=== PATIENT | male | born 1940 | race African-American/Black ===

== ENCOUNTER 2022-06-03 16:46 | Emergency (ER) | payer OTHER ==
--- NOTE | 2022-06-03 17:22 | RAD REPORT ---
EXAM DESCRIPTION: RAD - Chest Single View - 06/03/2022 5:15 pm CLINICAL HISTORY: COUGH Chest pain. COMPARISON: Chest Single View dated 10/22/2017; Chest Single View dated 09/28/2017; Chest Pa And Lat ( 2 Views) dated 09/23/2017; Chest Single View dated 02/08/2016 FINDINGS: Portable technique limits examination quality. The lungs are grossly clear. The heart is normal in size. No displaced fractures.Aortic atheroscleros is. IMPRESSION: No acute intrathoracic process suspected.
[2022-06-03 18:07] LABS: Absolute Lymphocytes (CBC) 0.5 K/uL (0.7-4.9); Lymphocytes % 4.5 % (15.3-44.8); MCV 92.4 fL (80-100); MPV 8.6 fL (7.6-11.3); RBC Red Blood Cell Count 4.54 M/uL (4.33-5.43)
[2022-06-03 18:31] LABS: Bilirubin Total 0.7 mg/dL (0.2-1.0); Potassium 3.9 mmol/L (3.5-5.1); Protein, Total 7.9 g/dL (6.4-8.2)
[2022-06-03] MEDS ORDERED: BEBTELOVIMAB 175 MG/2 ML VIAL IV ONE (19:39)
--- NOTE | 2022-06-03 20:00 | ER ---
Nurse's Notes [facility] Name: Saul Boyd Age: 81 yrs Sex: Male : 1940 Arrival Date: 06/03/2022 Time: 16:48 Bed 14 Private MD: Carlos Miller H Diagnosis: Coronavirus infection, unspecified Presentation: 06/03 16:51 Chief complaint: Patient states: he has been having cough and fever since this morning. ap3 Coronavirus screen: Client presents with at least one sign or symptom that may indicate coronavirus-19. Ebola Screen: No symptoms or risks identified at this time. Initial Sepsis Screen:. Initial Sepsis Screen: Does the patient meet any 2 criteria? HR > 90 bpm. Does the patient have a suspected source of infection? No. Patient's initial sepsis screen is negative. Risk Assessment: Do you want to hurt yourself or someone else? Patient reports no desire to harm self or others. Onset of symptoms was June 03, 2022. 16:51 Method Of Arrival: Ambulatory ap3 16:51 Acuity: ODELL 3 ap3 Triage Assessment: 16:56 General: Appears in no apparent distress. Behavior is calm, cooperative. General: ap3 Reports fever for feeling ill for. Pain: Denies pain. Neuro: Level of Consciousness is awake, alert, obeys commands, Oriented to person, place, time, situation. Cardiovascular: Patient's skin is warm and dry. Respiratory: Reports cough that is Airway is patent Respiratory effort is even, unlabored, Onset: The symptoms/episode began/occurred this morning, the patient has mild shortness of breath. Historical: - Allergies: 16:53 NKA; ap3 - Home Meds: 16:53 propylthiouracil 50 mg Oral tab [Active]; Ventolin Rotahaler/Rotacaps Inhl [Active]; ap3 lisinopril 20 mg Oral tab [Active]; Caltrate 600 plus D oral [Active]; Vitamin D3 oral [Active]; Zytiga 250 mg oral tab [Active]; prednisone 5 mg Oral tab [Active]; ondansetron HCl 4 mg Oral tab as needed [Active]; - PMHx: 16:53 Asthma; COPD; Hypertension; ap3 - Social history:: Smoking status: Patient/guardian denies using tobacco. Screenin:56 Abuse screen: Denies threats or abuse. Nutritional screening: No deficits noted. ap3 Tuberculosis screening: No symptoms or risk factors identified. Assessment: 19:46 Reassessment: Patient is alert, oriented x 3, equal unlabored respirations, skin ja4 warm/dry/pink. Vital Signs: 16:51 BP 166 / 85; Pulse 124; Resp 19; Temp 99.5(O); Pulse Ox 94% ; Weight 56.25 kg; Height 5 ap3 ft. 5 in. (165.10 cm); 19:45 BP 138 / 93; Pulse 115; Resp 16; Pulse Ox 97% on R/A; ja4 16:51 Body Mass Index 20.63 (56.25 kg, 165.10 cm) ap3 ED Course: 16:48 Patient arrived in ED. rg4 16:48 Carlos Miller DO is Private Physician. rg4 16:49 Luanne Franklin FNP-C is [facility]. kb 16:49 Ken Francois MD is Attending Physician. kb 16:53 Triage completed. ap3 16:56 Arm band placed on right wrist. ap3 17:17 Chest Single View XRAY In Process Unspecified. EDMS 17:22 Celi Simon, KATEY is Primary Nurse. [facility] 20:31 IV discontinued, intact, bleeding controlled, No redness/swelling at site. ja4 Administered Medications: 19:40 Drug: Bebtelovimab 175 mg Route: IV; Rate: calculated rate; Site: right antecubital; ja4 19:57 Drug: Tylenol 650 mg Route: PO; ja4 19:57 Drug: NS 0.9% 500 ml Route: IV; Rate: bolus; Site: right antecubital; ja4 Outcome: 19:59 Discharge ordered by . kb 20:30 Discharged to home ambulatory. ja4 20:30 Condition: stable 20:30 Discharge instructions given to patient, family, Instructed on discharge instructions, follow up and referral plans. medication usage, Demonstrated understanding of instructions, follow-up care, medications. 20:31 Patient left the ED. ja4 Signatures: Dispatcher [employer] EDMS Luanne Franklin FNP-C FNP-Ckb Garcia, Rubi rg4 Karla Marquis RN RN ap3 Celi Simon, RN RN jh5 Leandro Mendez, RN RN ja4
--- NOTE | 2022-06-03 20:00 | EDPHYS ---
Physician Documentation [facility] Name: Saul Boyd Age: 81 yrs Sex: Male : 1940 Arrival Date: 06/03/2022 Time: 16:48 Bed 14 Private MD: Carlos Miller H ED Physician Ken Francois HPI: 06/03 17:07 This 81 yrs old Black Male presents to ER via Ambulatory with complaints of Cough, kb Breathing Difficulty. 17:07 The patient or guardian reports cough, that is intermittent, described as mild, flu kb symptoms, low-grade fever. The patient or guardian reports difficulty breathing. Onset: The symptoms/episode began/occurred today. Severity of symptoms: At their worst the symptoms were moderate, in the emergency department the symptoms are unchanged. Modifying factors: The symptoms are alleviated by nothing, the symptoms are aggravated by nothing. Associated signs and symptoms: Pertinent positives: fever, Pertinent negatives: chest pain, diarrhea, ear ache, nausea, rhinorrhea, sore throat, vomiting. The patient has not experienced similar symptoms in the past. The patient has not recently seen a physician. Historical: - Allergies: 16:53 NKA; ap3 - Home Meds: 16:53 propylthiouracil 50 mg Oral tab [Active]; Ventolin Rotahaler/Rotacaps Inhl [Active]; ap3 lisinopril 20 mg Oral tab [Active]; Caltrate 600 plus D oral [Active]; Vitamin D3 oral [Active]; Zytiga 250 mg oral tab [Active]; prednisone 5 mg Oral tab [Active]; ondansetron HCl 4 mg Oral tab as needed [Active]; - PMHx: 16:53 Asthma; COPD; Hypertension; ap3 - Social history:: Smoking status: Patient/guardian denies using tobacco. ROS: 17:07 ENT: Negative for injury, pain, and discharge. kb 17:07 Constitutional: Positive for fever, Negative for body aches, chills, fatigue, malaise, poor PO intake, weight loss. 17:07 Respiratory: Positive for cough, shortness of breath. 17:07 All other systems are negative. Exam: 17:07 Constitutional: This is a well developed, well nourished patient who is awake, alert, kb and in no acute distress. Head/Face: Normocephalic, atraumatic. ENT: Moist Mucous membranes Chest/axilla: Normal chest wall appearance and motion. Cardiovascular: Regular rate and rhythm with a normal S1 and S2. No gallops, murmurs, or rubs. No pulse deficits. Respiratory: Respirations even and unlabored. No increased work of breathing. Talking in full sentences Skin: Warm, dry with normal turgor. Normal color. MS/ Extremity: Pulses equal, no cyanosis. Neurovascular intact. Full, normal range of motion. Neuro: Awake and alert, GCS 15, oriented to person, place, time, and situation. Moves all extremities. Normal gait. Psych: Awake, alert, with orientation to person, place and time. Behavior, mood, and affect are within normal limits. Vital Signs: 16:51 BP 166 / 85; Pulse 124; Resp 19; Temp 99.5(O); Pulse Ox 94% ; Weight 56.25 kg; Height 5 ap3 ft. 5 in. (165.10 cm); 19:45 BP 138 / 93; Pulse 115; Resp 16; Pulse Ox 97% on R/A; ja4 16:51 Body Mass Index 20.63 (56.25 kg, 165.10 cm) ap3 MDM: 16:54 Patient medically screened. kb 17:08 Data reviewed: vital signs, nurses notes. Data interpreted: Pulse oximetry: on room air kb is 94 %. Interpretation: normal. 18:51 Counseling: I had a detailed discussion with the patient and/or guardian regarding: the kb historical points, exam findings, and any diagnostic results supporting the discharge/admit diagnosis, lab results, radiology results, the need for outpatient follow up, a family practitioner, to return to the emergency department if symptoms worsen or persist or if there are any questions or concerns that arise at home. 19:58 ED course: Discussed bebtelovimab infusion with pt. Pt consents to infusion. . kb 06/03 16:54 Order name: Flu; Complete Time: 18:13 kb 06/03 16:54 Order name: COVID-19 SARS RT PCR (Document "Date of Onset" if Symptomatic); Complete kb Time: 18:42 06/03 16:55 Order name: Blood Culture Adult (2) kb 06/03 16:55 Order name: CBC with Diff; Complete Time: 18:13 kb 06/03 16:55 Order name: CMP; Complete Time: 18:42 kb 06/03 16:55 Order name: Lactate; Complete Time: 18:24 kb 06/03 16:55 Order name: Chest Single View XRAY; Complete Time: 17:24 kb 06/03 16:55 Order name: IV Saline Lock - Large Bore; Complete Time: 17:44 kb 06/03 16:55 Order name: Labs collected and sent; Complete Time: 17:44 kb 06/03 16:55 Order name: O2 Per Protocol; Complete Time: 17:22 kb 06/03 16:55 Order name: D-Dimer; Complete Time: 18:17 kb 06/03 16:55 Order name: O2 Sat Monitoring; Complete Time: 17:22 kb 06/03 19:36 Order name: Vital Signs kb Administered Medications: 19:40 Drug: Bebtelovimab 175 mg Route: IV; Rate: calculated rate; Site: right antecubital; ja4 19:57 Drug: Tylenol 650 mg Route: PO; ja4 19:57 Drug: NS 0.9% 500 ml Route: IV; Rate: bolus; Site: right antecubital; ja4 Disposition Summary: 06/03/22 19:59 Discharge Ordered Location: Home kb Condition: Stable kb Diagnosis - Coronavirus infection, unspecified kb Followup: kb - With: Emergency Department - When: As needed - Reason: Worsening of condition Followup: kb - With: Private Physician - When: 2 - 3 days - Reason: Recheck today's complaints, Continuance of care, Re-evaluation by your physician Discharge Instructions: - Discharge Summary Sheet kb - Viral Respiratory Infection, [id number] kb - COVID-19 kb Forms: - Medication Reconciliation Form kb - Thank You Letter kb - Antibiotic Education kb - Prescription Opioid Use kb Signatures: Dispatcher [employer] Luanne Varela FNP-C FNP-Ckb Prokisch, Amanda RN RN [id number] Leandro Mendez RN RN ja4
[2022-06-03] MEDS ORDERED: NA CHLORIDE 0.9% 500 ML ONE (20:03)
[2022-06-03] MEDS ORDERED: ACETAMINOPHEN 325 MG TABLET ONE (20:03)
[2022-06-03 21:26] VITALS: TEMP 99.5
[2022-06-03 21:28] VITALS: BP 138/93; O2SAT 97
== END 2022-06-03 20:31 | disposition home or self-care (01) ==
LOC: ER 16:46
DX: U07.1 COVID-19 (principal); I10 Essential (primary) hypertension; J44.9 Chronic obstructive pulmonary disease, unspecified
CPT/HCPCS: 87040 ×2; 85025; 36415; 85379; 83605; 80053; 87804 ×2; 71045; 96374; 99283; U0003; J7040

== ENCOUNTER 2023-03-31 13:12 | Emergency (ER) | payer OTHER ==
[2023-03-31] MEDS ORDERED: METHYLPREDNISOLONE 40 MG INJ ONE (13:36)
[2023-03-31] MEDS ORDERED: IPRATROPIUM BROM 0.5MG/2.5ML ONE (13:39)
[2023-03-31] MEDS ORDERED: ALBUTEROL 2.5 MG/3 ML NEB SOL ONE (13:39)
[2023-03-31 14:06] LABS: Absolute Lymphocytes (CBC) 0.9 K/uL (0.7-4.9); Hematocrit 37.7 % (39.6-49.0); MCV 93.1 fL (80-100); MPV 8.5 fL (7.6-11.3); RBC Red Blood Cell Count 4.05 M/uL (4.33-5.43)
--- NOTE | 2023-03-31 14:06 | RAD REPORT ---
EXAM DESCRIPTION: RAD - Chest Single View - 03/31/2023 1:56 pm CLINICAL HISTORY: COPD Chest pain. COMPARISON: Chest Single View dated 06/03/2022; Chest Single View dated 10/22/2017; Chest Single View d ated 09/28/2017; Chest Pa And Lat (2 Views) dated 09/23/2017 FINDINGS: Portable technique limits examination quality. The lungs are emphysematous but clear. The heart is normal in size. No displaced fractures. IMPRESSION: COPD.
[2023-03-31 14:23] LABS: Albumin 3.3 g/dL (3.4-5.0); Bilirubin Total 0.4 mg/dL (0.2-1.0); Potassium 3.6 mEq/L (3.5-5.1); Protein, Total 7.1 g/dL (6.4-8.2); Troponin High Sensitivity 44.2 pg/mL (<58.9)
[2023-03-31] MEDS ORDERED: NA CHLORIDE 0.9% 1,000 ML ONE (15:25)
--- NOTE | 2023-03-31 16:26 | EDPHYS ---
Physician Documentation [facility] Name: Saul Boyd Age: 82 yrs Sex: Male : 1940 Arrival Date: 03/31/2023 Time: 13:12 Bed 8 Private MD: Carlos Miller H ED Physician Sushil Ricks HPI: 03/31 14:23 This 82 yrs old Black Male presents to ER via Wheelchair with complaints of Breathing bs3 Difficulty. 14:23 82-year-old male history of COPD hypertension former smoker presents with cough bs3 difficulty breathing for approximately 3 to 4 days progressive over time they tried outpatient treatment with his albuterol without relief no history of PE or DVT no leg swelling no fevers or chills no chest pain nothing else is bothering him. Historical: - Allergies: 13:20 NKA; ll1 - Home Meds: 13:25 Vitamin D Oral 2000 unit daily [Active]; Caltrate 600 plus D 600 mg-20 mcg (800 unit) iw oral tablet,chewable daily [Active]; lisinopril 20 mg Oral tablet daily [Active]; Ventolin Rotahaler/Rotacaps Inhl four times a day [Active]; propylthiouracil 50 mg Oral tablet 3 times per day [Active]; albuterol sulfate 2.5 mg /3 mL (0.083 %) Inhl Solution for Nebulization 4 times per day [Active]; Zytiga 250 mg oral tablet three times a day [Active]; prednisone 1 mg Oral tablet, delayed release (enteric coated) 2 times per day [Active]; ondansetron HCl 4 mg Oral tablet daily [Active]; - PMHx: 13:20 Asthma; COPD; Hypertension; ll1 - Immunization history:: Client reports receiving the 2nd dose of the Covid vaccine. - Social history:: Smoking status: Patient/guardian denies using tobacco. ROS: 14:23 Constitutional: Negative for fever, chills bs3 14:23 All other systems are negative. Exam: 14:23 Constitutional: This is a well developed, well nourished patient who is awake, alert, bs3 and in no acute distress. Head/Face: Normocephalic, atraumatic. Eyes: Pupils equal round and reactive to light, extra-ocular motions intact. Lids and lashes normal. ENT: mmm, no posterior phyarngeal erythema Neck: Trachea midline, no thyromegaly, no neck stiffness Chest/axilla: Normal chest wall appearance and motion. Nontender with no deformity. No lesions are appreciated. Cardiovascular: Tachycardic no murmur Respiratory: Tachypneic, clear lung Abdomen/GI: Soft, non-tender, no rebound or guarding MS/ Extremity: Pulses equal, no cyanosis. Neurovascular intact. Full, normal range of motion. Neuro: Awake and alert, GCS 15, oriented to person, place, time, and situation. Cranial nerves II-XII grossly intact. Motor strength 5/5 in all extremities. Sensory grossly intact. Psych: Awake, alert, with orientation to person, place and time. Behavior, mood, and affect are within normal limits. 14:23 Sinus tachycardia 112, right bundle branch block QTc 464 as interpreted by myself bs3 Vital Signs: 13:21 BP 155 / 78; Pulse 105; Resp 22; Temp 98.7; Weight 57.15 kg; Height 5 ft. 5 in. ; Pain ll1 0/10; 13:47 BP 142 / 76; Pulse 114; Resp 26; Temp 98; Pulse Ox 100% on 6 lpm Nebulizer Mask; Pain sc3 0/10; 16:27 BP 155 / 67; Pulse 106; Resp 20; Temp 97.7; Pulse Ox 98% on R/A; Pain 0/10; sc3 13:21 Body Mass Index 20.97 (57.15 kg, 165.1 cm) ll1 13:21 Pain Scale: Adult ll1 13:47 Pain Scale: Adult sc3 16:27 Pain Scale: Adult sc3 MDM: 13:15 Patient medically screened. bs3 14:23 Data reviewed: vital signs, nurses notes. ED course: Patient with possible viral bs3 illness versus COPD exacerbation versus pneumonia versus PE he is low risk for PE will send D-dimer we will reassess we will give DuoNeb will give steroids. ED course: D-dimer is within the range for age-adjusted D-dimer we will not pursue further work-up for this patient reassessed feeling much better no hypoxia tachypnea is improved advised outpatient follow-up with Dr. Bui for likely acute COPD exacerbation will start on steroid and azithromycin. 16:24 ED course: Patient feeling much better on reassessment requesting to go home will treat bs3 for COPD exacerbation his heart rate is improving when I reassessed him it was 107 he feels comfortable going home return precautions given. 03/31 13:23 Order name: CBC with Diff; Complete Time: 14:16 bs3 03/31 13:23 Order name: Comprehensive Metabolic Panel; Complete Time: 14:26 bs3 03/31 13:23 Order name: D-Dimer; Complete Time: 14:16 bs3 03/31 13:23 Order name: Troponin High Sensitivity; Complete Time: 14:26 bs3 03/31 13:23 Order name: XRAY Chest (1 view); Complete Time: 14:16 bs3 03/31 13:23 Order name: EKG - Nurse/Tech; Complete Time: 13:36 bs3 Administered Medications: 13:45 Drug: DuoNeb Nebulize (3:1) (2.5 mg - 0.5 mg) 9 ml Route: Nebulizer; sc3 14:05 Follow up: Response: No adverse reaction iw 13:46 Drug: MethylPrednisoLONE IVP 40 mg Route: IVP; Site: right antecubital; sc3 14:05 Follow up: Response: No adverse reaction iw 15:22 Drug: NS 0.9% IV 1000 ml Route: IV; Rate: 1 bolus; Site: right antecubital; sc3 16:20 Follow up: IV Status: Completed infusion iw Disposition Summary: 03/31/23 16:25 Discharge Ordered Location: Home bs3 Problem: new bs3 Symptoms: have improved bs3 Condition: Stable bs3 Diagnosis - COPD/ Chronic obstructive pulmonary disease with (acute) exacerbation bs3 Followup: bs3 - With: Carlos Miller DO - When: 1 week - Reason: Re-evaluation by your physician Discharge Instructions: - Discharge Summary Sheet bs3 - Chronic Obstructive Pulmonary Disease bs3 Forms: - Medication Reconciliation Form bs3 - Thank You Letter bs3 - Antibiotic Education bs3 - Prescription Opioid Use bs3 Prescriptions: - Zithromax Z-[place] 250 mg Oral Tablet - take 1 tablet by ORAL route as directed for 5 days Day 1 - take two (2) tablets bs3 one time. Day 2, 3, 4 , 5 take one (1) tablet once daily.; 6 tablet; Refills: 0, Product Selection Permitted - Prednisone 20 mg Oral Tablet - take 2 tablets by ORAL route once daily for 5 days; 10 tablet; Refills: 0, bs3 Product Selection Permitted Signatures: Dispatcher [employer] Angeles Francois, RN RN iw Krista Cuellar RN RN ll1 Sushil Ricks MD MD bs3 Yinka Olea RN RN sc3
--- NOTE | 2023-03-31 16:26 | ER ---
Nurse's Notes [facility] Name: Saul Boyd Age: 82 yrs Sex: Male : 1940 Arrival Date: 03/31/2023 Time: 13:12 Bed 8 Private MD: Carlos Miller H Diagnosis: COPD/ Chronic obstructive pulmonary disease with (acute) exacerbation Presentation: 03/31 13:21 Chief complaint: Patient states: Cough, SOB, weak for 2-3 days. Coronavirus screen: [facility] Vaccine status: Patient reports receiving the 2nd dose of the covid vaccine. Client denies travel out of the [place] in the last 14 days. cough unrelated to allergies, difficulty breathing, fatigue, shortness of breath, Client presents with at least one sign or symptom that may indicate coronavirus-19. Standard/surgical mask placed on the client. Ebola Screen: Patient denies travel to an Ebola-affected area in the 21 days before illness onset. Initial Sepsis Screen: Does the patient meet any 2 criteria? HR > 90 bpm. No. Patient's initial sepsis screen is negative. Does the patient have a suspected source of infection? Yes: Productive cough/pneumonia. Risk Assessment: Do you want to hurt yourself or someone else? Patient reports no desire to harm self or others. Onset of symptoms was March 29, 2023. 13:21 Method Of Arrival: Wheelchair ll1 13:21 Acuity: ODELL 3 ll1 Triage Assessment: 13:22 General: Appears uncomfortable, ill, Behavior is calm, cooperative, appropriate for [facility] age. Pain: Denies pain. Respiratory: Reports shortness of breath cough that is labored breathing Onset: The symptoms/episode began/occurred 2-3 days, the patient has moderate shortness of breath. Historical: - Allergies: 13:20 NKA; ll1 - Home Meds: 13:25 Vitamin D Oral 2000 unit daily [Active]; Caltrate 600 plus D 600 mg-20 mcg (800 unit) iw oral tablet,chewable daily [Active]; lisinopril 20 mg Oral tablet daily [Active]; Ventolin Rotahaler/Rotacaps Inhl four times a day [Active]; propylthiouracil 50 mg Oral tablet 3 times per day [Active]; albuterol sulfate 2.5 mg /3 mL (0.083 %) Inhl Solution for Nebulization 4 times per day [Active]; Zytiga 250 mg oral tablet three times a day [Active]; prednisone 1 mg Oral tablet, delayed release (enteric coated) 2 times per day [Active]; ondansetron HCl 4 mg Oral tablet daily [Active]; - PMHx: 13:20 Asthma; COPD; Hypertension; ll1 - Immunization history:: Client reports receiving the 2nd dose of the Covid vaccine. - Social history:: Smoking status: Patient/guardian denies using tobacco. Screenin:48 [facility] ED Fall Risk Assessment (Adult) History of falling in the last 3 months, sc3 including since admission No falls in past 3 months (0 pts) Confusion or Disorientation No (0 pts) Intoxicated or Sedated No (0 pts) Impaired Gait No (0 pts) Mobility Assist Device Used No (0 pt) Altered Elimination No (0 pt) Score/Fall Risk Level 0 - 2 = Low Risk. Abuse screen: Denies threats or abuse. Nutritional screening: No deficits noted. Tuberculosis screening: No symptoms or risk factors identified. Assessment: 13:46 General: Appears in no apparent distress. Behavior is calm, cooperative, appropriate sc3 for age, Smells of Reports sob Denies fever, feeling ill, fatigue, chills. Pain: Denies pain. Neuro: No deficits noted. Cardiovascular: Reports shortness of breath, Rhythm is sinus tachycardia. Respiratory: Reports shortness of breath Airway is patent Trachea midline Respiratory effort is even, Respiratory pattern is regular, symmetrical, tachypnea Sputum is Ventilator assessment: Breath sounds are diminished bilaterally. Breath sounds with wheezes in left upper lobe. GI: No deficits noted. : No deficits noted. EENT: No deficits noted. Derm: No deficits noted. Musculoskeletal: No deficits noted. Vital Signs: 13:21 BP 155 / 78; Pulse 105; Resp 22; Temp 98.7; Weight 57.15 kg; Height 5 ft. 5 in. ; Pain ll1 0/10; 13:47 BP 142 / 76; Pulse 114; Resp 26; Temp 98; Pulse Ox 100% on 6 lpm Nebulizer Mask; Pain sc3 0/10; 16:27 BP 155 / 67; Pulse 106; Resp 20; Temp 97.7; Pulse Ox 98% on R/A; Pain 0/10; sc3 13:21 Body Mass Index 20.97 (57.15 kg, 165.1 cm) ll1 13:21 Pain Scale: Adult ll1 13:47 Pain Scale: Adult sc3 16:27 Pain Scale: Adult sc3 Vitals: 13:47 Cardiac Rhythm Assessment Regular Sinus tach. sc3 ED Course: 01:14 Arm band placed on Patient placed in an exam room, on a stretcher. ll1 13:14 Patient arrived in ED. mr 13:14 Carlos Miller DO is Private Physician. mr 13:15 Sushil Ricks MD is Attending Physician. bs3 13:15 Angeles Voegl RN is Primary Nurse. iw 13:22 Triage completed. ll1 13:45 Patient has correct armband on for positive identification. iw 13:49 Inserted saline lock: 20 gauge in right antecubital area, using aseptic technique. sc3 Oxygen administered via a nebulizer mask. 13:58 XRAY Chest (1 view) In Process Unspecified. EDMS 16:24 Carlos Miller DO is Referral Physician. bs3 16:27 No provider procedures requiring assistance completed. iw 16:28 IV discontinued. sc3 Administered Medications: 13:45 Drug: DuoNeb Nebulize (3:1) (2.5 mg - 0.5 mg) 9 ml Route: Nebulizer; sc3 14:05 Follow up: Response: No adverse reaction iw 13:46 Drug: MethylPrednisoLONE IVP 40 mg Route: IVP; Site: right antecubital; ak3 14:05 Follow up: Response: No adverse reaction iw 15:22 Drug: NS 0.9% IV 1000 ml Route: IV; Rate: 1 bolus; Site: right antecubital; sc3 16:20 Follow up: IV Status: Completed infusion iw Medication: 13:46 VIS not applicable for this client. iw Outcome: 16:25 Discharge ordered by . bs3 16:28 Discharged to home ambulatory, with family. sc3 16:28 Condition: good 16:28 Discharge instructions given to patient, family. 16:36 Patient left the ED. sc3 Signatures: Dispatcher [facility] Alka Fuller mr Angeles Vogel RN RN iw Krista Cuellar RN RN 1 Sushil Ricks MD MD [facility] Olea, Yinka, RN RN sc3
[2023-03-31 16:53] VITALS: BP 155/67; TEMP 97.7; O2SAT 98
--- NOTE | 2023-04-04 17:58 | EKG ---
Test Date: 2023-03-31 Test Time: 13:31:59 Instrument And Controls Technician: ROSEANNA MEASUREMENT RESULTS: Intervals: Rate: 112 PA: 136 QRSD: 116 QT: 340 QTc: 464 [place]: P: 74 PA: 136 QRS: 82 T: 55 INTERPRETIVE STATEMENTS: Sinus tachycardia with premature atrial complexes Right bundle branch block Abnormal ECG Compared to ECG 10/22/2017 11:31:38 Atrial premature complex(es) now present Right bundle-branch block now present Atrial abnormality no longer present Incomplete right bundle-branch block no longer present Electronically Signed On 04-04-23 17:52:56 CDT by Sidney Farrell
== END 2023-03-31 16:36 | disposition home or self-care (01) ==
LOC: ER 13:12
DX: J44.1 Chronic obstructive pulmonary disease with (acute) exacerbation (principal); I10 Essential (primary) hypertension
CPT/HCPCS: 96361; 93005; 85025; 36415; 85379; 84484; 80053; 71045; 94640; 96374; 99285; J7613; J7644; J7030; J2920

== ENCOUNTER 2024-01-23 11:21 | Emergency (ER) | payer OTHER ==
--- NOTE | 2024-01-23 11:59 | RAD REPORT ---
EXAM DESCRIPTION: CT - Pelvis Wo Cont - 01/23/2024 11:45 am CLINICAL HISTORY: TRAUMA COMPARISON: No comparisons TECHNIQUE: Thin cut axial CT imaging of the pelvis was performed without IV contrast. Multiplanar re formats were generated and reviewed. All CT scans are performed using dose optimization technique as appropriate and may include automated exposure control or mA/KV adjustment according to patient size. FINDINGS: Angulated proximal left femoral shaft fracture, with lateral apex angulation, measuring 50 degrees. Swelling in the adjacent soft tissues without discrete hematoma within limits of noncontras t evaluation. Visualized bony pelvis and femoral necks are unremarkable. [id number] bilateral h ip joint degenerative changes. Mild lower lumbar spine degenerative changes. No dilated bowel loops or bowel wall thickening. Mild distal colonic diverticulosis. No free air, winston e fluid or inflammatory stranding. No hernia, mass or bulky lymphadenopathy. The urinary bladder is w ithout significant finding. IMPRESSION: Displaced proximal left femoral shaft fracture with lateral apex angulation. Pelvic ring is intact.
[2024-01-23 12:07] LABS: Absolute Basophils 0.1 K/uL (0-0.5); Absolute Lymphocytes (CBC) 1.2 K/uL (0.7-4.9); Absolute Monocytes 1.1 K/uL (0.1-1.3); Absolute Neutrophil 5.7 K/uL (1.8-8.0); Basophils % 0.7 % (0-1.3); Eosinophils % 0.6 % (0-4.4); Hematocrit 32.5 % (39.6-49.0); Hemoglobin 10.9 g/dL (13.6-17.9); Lymphocytes % 14.5 % (15.3-44.8); MCH 30.7 pg (27.0-35.0); MCHC 33.5 g/dL (32.0-36.0); MCV 91.6 fL (80-100); Monocytes % 13.6 % (3.3-12.3); Neutrophils % 70.6 % (41.7-73.7); Platelets 467 thou/uL (152-406); RBC Red Blood Cell Count 3.54 M/uL (4.33-5.43)
[2024-01-23 12:16] LABS: PT Prothrombin Time 15.4 SECONDS (9.5-12.5); Protime INR 1.41
--- NOTE | 2024-01-23 12:24 | EDPHYS ---
Physician Documentation [facility] Name: Saul Boyd Age: 83 yrs Sex: Male : 1940 Arrival Date: 01/23/2024 Time: 11:21 Bed 3 Private MD: ED Physician Ramy Hauser HPI: 01/22 11:24 This 83 yrs old Black Male presents to ER via Unassigned with complaints of Fall Injury.7 11:24 Details of fall: The patient fell from an upright position, while walking. Onset: The jh7 symptoms/episode began/occurred acutely. Associated injuries: The patient sustained left hip, decreased range of motion, deformity, obvious fracture, painful injury. 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 The patient states that his cane slipped out from under him and he landed on his left hip. EMS reports obvious deformity with internal rotation of the left leg. Fentanyl 50 mcg x 2 were given in route. Patient calm and alert and oriented x 4 upon ED arrival.. Historical: - Allergies: 11:47 NKA; ko1 - PMHx: 11:47 Asthma; COPD; Hypertension; cancer of bone (Hypertension); ko1 - Immunization history: Last tetanus immunization: unknown. - Infectious Disease History:: Denies. - Social history:: Smoking status: Patient denies any tobacco usage or history of. ROS: 11:24 Constitutional: Negative for fever, chills, and weight loss, Eyes: Negative for injury, jh7 pain, redness, and discharge, Neck: Negative for injury, pain, and swelling, Cardiovascular: Negative for chest pain, palpitations, and edema, Respiratory: Negative for shortness of breath, cough, wheezing, and pleuritic chest pain, Abdomen/GI: Negative for abdominal pain, nausea, vomiting, diarrhea, and constipation, Back: Negative for injury and pain, Skin: Negative for injury, rash, and discoloration, Neuro: Negative for headache, weakness, numbness, tingling, and seizure, 11:24 MS/extremity: Positive for injury or acute deformity, decreased range of motion, deformity, pain, of the left hip, 11:24 All other systems are negative, Exam: 11:24 Constitutional: This is a well developed, well nourished patient who is awake, alert, jh7 and in no acute distress. Head/Face: Normocephalic, atraumatic. Neck: Trachea midline, no thyromegaly or masses palpated, and no cervical lymphadenopathy. Supple, full range of motion without nuchal rigidity, or vertebral point tenderness. No Meningismus. Cardiovascular: Regular rate and rhythm with a normal S1 and S2. No gallops, murmurs, or rubs. Normal PMI, no JVD. No pulse deficits. Respiratory: Lungs have equal breath sounds bilaterally, clear to auscultation and percussion. No rales, rhonchi or wheezes noted. No increased work of breathing, no retractions or nasal flaring. Abdomen/GI: Soft, non-tender, with normal bowel sounds. No distension or tympany. No guarding or rebound. No evidence of tenderness throughout. Back: No spinal tenderness. No costovertebral tenderness. Full range of motion. Skin: Warm, dry with normal turgor. Normal color with no rashes, no lesions, and no evidence of cellulitis. Neuro: Awake and alert, GCS 15, oriented to person, place, time, and situation. 11:24 Musculoskeletal/extremity: Extremities: noted in the left hip: decreased ROM, deformity, pain, tenderness, Left hip is internally rotated with shortening of the left leg. Patient is tender over left iliac crest. Pulses and sensation intact. Patient is able to wiggle toes., ROM: limited active range of motion, in the left hip, limited passive range of motion due to pain, in the left hip, Circulation is intact in all extremities. Pulses: are normal with no appreciated deficits, Perfusion: the extremity is normally perfused throughout, pink, warm, with brisk capillary refill, Sensation intact. Vital Signs: 11:25 BP 174 / 74; Pulse 93; Resp 16; Temp 98; Pulse Ox 96% on R/A; ko1 12:31 BP 172 / 79; Pulse 88; Resp 17; Pulse Ox 100% on R/A; ko1 12:37 Weight 53.52 kg; ko1 12:37 Weight 53.52 kg; bd 13:26 BP 164 / 69; Pulse 83; Resp 15; Pulse Ox 99% on R/A; ko1 [place] Coma Score: 11:25 Eye Response: spontaneous(4). Motor Response: obeys commands(6). Verbal Response: ko1 oriented(5). Total: 15. Trauma Score (Adult): 11:25 Eye Response: spontaneous(1); Verbal Response: oriented(1); Motor Response: obeys ko1 commands(2); Systolic BP: > 89 mm Hg(4); Respiratory Rate: 10 to 29 per min(4); Shay Score: 15; Trauma Score: 12 MDM: 11:24 Patient medically screened. [facility] 12:20 Differential diagnosis: contusion, fracture, dislocation. Data reviewed: vital signs, [facility] nurses notes, lab test result(s), radiologic studies, CT scan. Management of patient was discussed with the following: General Distillery Worker: Dr. Newberry, ortho surgery, who advised transfer for higher level of care. I considered the following discharge prescriptions or medication management in the emergency department Medications were administered in the Emergency Department. See MAR. Care significantly affected by the following chronic conditions: Hypertension, Cancer. Counseling: I had a detailed discussion with the patient and/or guardian regarding the historical points, exam findings, and any diagnostic results supporting the discharge/admit diagnosis, the need to transfer to another facility, for higher level of care. 01/22 11:26 Order name: BMP; Complete Time: 13:30 [facility] 01/22 11:26 Order name: CBC with Diff; Complete Time: 12:17 [facility] 01/22 11:26 Order name: PT-INR; Complete Time: 12:17 [facility] 01/22 11:26 Order name: Type And Screen [facility] 01/22 12:13 Order name: Type And Screen: recollect type and screen, re band pt. write date on label bd 01/22 11:26 Order name: CT Pelvis wo Cont; Complete Time: 12:00 [facility] 01/22 12:20 Order name: Labs - recollect needed: recollect green top; Complete Time: 12:51 bd Administered Medications: 13:42 Drug: fentaNYL (PF) IVP 50 mcg IVP once Route: IVP; Site: left antecubital; ko1 13:57 Follow up: Response: No adverse reaction; Pain is decreased ko1 Disposition Summary: 01/23/24 12:23 Transfer Ordered Notes: Transfer Location: [place] [id number] Reason: Higher level of care [facility] Condition: Stable jh7 Problem: new [facility] Symptoms: have worsened [facility] Accepting Physician: Accepting (01/23/24 14:34) [email or web address] Diagnosis - Fracture of shaft of femur 7 - Bone cancer 7 - Fall on same level, unspecified [facility] Forms: - Medication Reconciliation Form 7 - SBAR form 7 Signatures: Dispatcher [employer] EDMS Christy Borden Jennifer, PROVIDER RELATIONS COORDINATOR PROVIDER RELATIONS COORDINATOR 7 Cassi Garcia, RN RN ko1 Corrections: (The following items were deleted from the chart) 11:26 11:26 BASIC METABOLIC PANEL+C.LAB.BRZ ordered. EDMS EDMS 11: 11:26 CBC+H.LAB.BRZ ordered. EDMS EDMS 11: 11:26 PROTIME (+INR)+COAG.LAB.BRZ ordered. EDMS EDMS 11: 11:26 TYPE AND SCREEN+BB.LAB.BRZ ordered. EDMS EDMS 14:34 12:23 Accepting Andreas ko1
--- NOTE | 2024-01-23 12:24 | ER ---
Nurse's Notes [facility] Name: Saul Boyd Age: 83 yrs Sex: Male : 1940 Arrival Date: 01/23/2024 Time: 11:21 Bed 3 Private MD: Diagnosis: Fracture of shaft of femur;Bone cancer;Fall on same level, unspecified Presentation: 01/22 11:25 Chief complaint: EMS states: patient was going to the bathroom this morning and his ko1 wooden cane slipped out from under him causing him to fall onto left hip. Care prior to arrival: Medication(s) given: fentanyl 50 mcg IV on scene and 50 mcg IV SLASHER at hospital IV initiated. 20 GA, in the left antecubital area, Glucose check: 135. Mechanism of Injury: Fall from standing position. Trauma event details: Injury occurred in the [facility], Injury occurred: at home. Injury occurred: January 23, 2024 Injury occurred at: 11:00. 11:25 Acuity: ODELL 3 ko1 11:25 Method Of Arrival: EMS: [facility] ko1 11:46 Coronavirus screen: At this time, the client does not indicate any symptoms associated ko1 with coronavirus-19. Ebola Screen: No symptoms or risks identified at this time. Initial Sepsis Screen: Does the patient meet any 2 criteria? No. Patient's initial sepsis screen is negative. Does the patient have a suspected source of infection? No. Patient's initial sepsis screen is negative. Risk Assessment: Do you want to hurt yourself or someone else? Patient reports no desire to harm self or others. Onset of symptoms was January 23, 2024. Trauma Activation: Not Applicable Physician: ED Physician; Name: ; Notified At: ; Arrived At: Physician: General Surgeon; Name: ; Notified At: ; Arrived At: Physician: Radiology; Name: ; Notified At: ; Arrived At: Physician: Respiratory; Name: ; Notified At: ; Arrived At: Physician: Lab; Name: ; Notified At: ; Arrived At: Historical: - Allergies: 11:47 NKA; ko1 - PMHx: 11:47 Asthma; COPD; Hypertension; cancer of bone (Hypertension); ko1 - Immunization history: Last tetanus immunization: unknown. - Infectious Disease History:: Denies. - Social history:: Smoking status: Patient denies any tobacco usage or history of. Screenin:25 Abuse screen: Denies threats or abuse. Denies injuries from another. Tuberculosis ko1 screening: No symptoms or risk factors identified. 11:48 [facility] ED Fall Risk Assessment (Adult) History of falling in the last 3 months, ko1 including since admission Yes- single mechanical fall (1 pt) Confusion or Disorientation No (0 pts) Intoxicated or Sedated No (0 pts) Impaired Gait No (0 pts) Mobility Assist Device Used No (0 pt) Altered Elimination No (0 pt) Score/Fall Risk Level 0 - 2 = Low Risk Oriented to surroundings, Maintained a safe environment, Educated pt \T\ family on fall prevention, incl call for assistance when getting out of bed, Assessed \T\ reinforced patient's understanding of fall precautions, Provided non-skid footwear, Hourly rounding (assess needs \T\ fall precautionary measures) done, Used ambulatory aids as needed (educated on \T\ assisted with), Used gait belt as appropriate. Nutritional screening: No deficits noted. Primary Survey: 11:25 NO uncontrolled hemorrhage observed. A: The client is awake and alert. The airway is ko1 patent. The client is alert. Airway: patent, No supplemental oxygen in use on arrival. Oral cavity: clear, Trachea midline. Breathing/Chest: Spontaneous respiratory effort, equal unlabored respirations, breath sounds clear bilaterally, regular pattern, symmetrical chest rise and fall. Respiratory effort: spontaneous, unlabored, Breath sounds: clear, bilaterally. Respiratory pattern: regular, Chest inspection: symmetrical rise and fall of the chest. Circulation: No external hemorrhage present. Regular and strong central pulse, skin warm/dry/normal color. Disability Pupils are equal, round, reactive to light and accommodation. Client is alert. Exposure/Environment: All clothing and personal items were removed. Forensic evidence collection is not deemed to be indicated at this time. Items placed in patient belonging bag. There is no evidence of uncontrolled external bleeding. Obvious injury(ies) are noted at this time: left hip deformity A warming method has been applied: A warm blanket has been provided to the patient. 11:45 Reassessment Breathing: Spontaneous respiratory effort, equal unlabored respirations, ko1 breath sounds clear bilaterally, regular pattern with symmetrical chest rise and fall. Respiratory effort Spontaneous Breath sounds Wheezes Respiratory pattern Regular Tachypnea Chest inspection Symmetrical. Assessment: 11:25 General: Appears in no apparent distress. uncomfortable, Behavior is calm, cooperative, ko1 appropriate for age. Pain: Complains of pain in left hip. Vital Signs: 11:25 BP 174 / 74; Pulse 93; Resp 16; Temp 98; Pulse Ox 96% on R/A; ko1 12:31 BP 172 / 79; Pulse 88; Resp 17; Pulse Ox 100% on R/A; ko1 12:37 Weight 53.52 kg; ko1 12:37 Weight 53.52 kg; bd 13:26 BP 164 / 69; Pulse 83; Resp 15; Pulse Ox 99% on R/A; ko1 [place] Coma Score: 11:25 Eye Response: spontaneous(4). Motor Response: obeys commands(6). Verbal Response: ko1 oriented(5). Total: 15. Trauma Score (Adult): 11:25 Eye Response: spontaneous(1); Verbal Response: oriented(1); Motor Response: obeys ko1 commands(2); Systolic BP: > 89 mm Hg(4); Respiratory Rate: 10 to 29 per min(4); Shay Score: 15; Trauma Score: 12 ED Course: 11:24 Patient arrived in ED. kc6 11:24 Lian Garnica FNP [facility] jh7 11:24 Ramy Hauser MD is Attending Physician. jh7 11:25 Patient has correct armband on for positive identification. Fall risk band placed. ko1 Placed in gown. Bed in low position. Call light in reach. Side rails up X2. 11:25 O2 via RA. ko1 11:25 Thermoregulation: warm blanket given to patient. ko1 11:31 Cassi Garcia, KATEY is Primary Nurse. ko1 11:43 Triage completed. ko1 11:46 CT Pelvis wo Cont In Process Unspecified. EDMS 11:47 Patient placed in an exam room, on a stretcher, on rn cardiac, on pulse oximetry, ko1 Patient notified of wait time. 11:48 Maintain EMS IV. Dressing intact. Good blood return noted. Site clean \T\ dry. Gauge \T\ ko 1 site: 20 left AC. 11:59 Type And Screen Sent. ko1 11:59 PT-INR Sent. ko1 12:00 CBC with Diff Sent. ko1 12:00 BMP Sent. ko1 12:00 Initial lab(s) drawn, by me, sent to lab. ko1 12:31 Provided Education on: labs and transfer. ko1 12:31 No provider procedures requiring assistance completed. ko1 12:45 initiated transfer to [facility]. bd 12:51 Type And Screen: recollect type and screen, re band pt. write date on label Sent. iw 13:05 pt accepted in transfer to [facility] ER by dr Hui with out consult, admin approval bd given by Roxana Guzman RN. 13:45 Patient transferred, IV remains in place. ko1 Administered Medications: 13:42 Drug: fentaNYL (PF) IVP 50 mcg IVP once Route: IVP; Site: left antecubital; ko1 13:57 Follow up: Response: No adverse reaction; Pain is decreased ko1 Medication: 12:31 VIS not applicable for this client. ko1 Intake: 11:45 PO: 0ml; Total: 0ml. ko1 Output: 11:45 Urine: 0ml; Total: 0ml. ko1 Outcome: 11:45 Condition: stable ko1 11:45 Patient's length of stay in the Emergency Department was greater than 2 hours. awaiting acceptance for transferPatient's length of stay extended due to 12:23 ER care complete, transfer ordered by . Andreas 13:45 Instructed on the need for transfer, Demonstrated understanding of instructions, ko1 14:34 Transferred by ground EMS [facility]. to [facility], Transfer form ko1 completed. X-rays sent w/ patient. 14:34 Patient left the ED. ko1 Signatures: Dispatcher [employer] EDMS Christy Borden Irene, RN RN iw Lian Garnica, SOLUTION STRATEGIST SOLUTION STRATEGIST jh7 Alexia Villareal RN RN kc6 Cassi Garcia RN RN ko1
[2024-01-23 13:15] LABS: Anion Gap 9.9 mEq/L (5.0-15.0); Potassium 3.9 mEq/L (3.5-5.1)
[2024-01-23] MEDS ORDERED: FENTANYL CITR 100 MCG/2 ML ONE (13:36)
[2024-01-23 18:29] VITALS: TEMP 98
[2024-01-23 19:04] VITALS: BP 164/69; O2SAT 99
== END 2024-01-23 14:34 | disposition short-term general hospital (02) ==
LOC: ER 11:21
DX: S72.392A Other fracture of shaft of left femur, initial encounter for closed fracture (principal); C41.9 Malignant neoplasm of bone and articular cartilage, unspecified; W18.30XA Fall on same level, unspecified, initial encounter; I10 Essential (primary) hypertension; J44.9 Chronic obstructive pulmonary disease, unspecified
CPT/HCPCS: 85025; 80048; 36415; 86900; 86850; 85610; 86901; 72192; 96374; 99285; J3010

== ENCOUNTER 2024-10-07 11:08 | Emergency (ER) | payer OTHER ==
[2024-10-07] MEDS ORDERED: NA CHLORIDE 0.9% 500 ML ONE (11:49)
--- NOTE | 2024-10-07 12:01 | RAD REPORT ---
EXAM: CT brain without contrast HISTORY: DIZZINESS COMPARISON: None TECHNIQUE: Multiple contiguous axial images were obtained and a CT of the brain without contrast. Sag ittal and coronal reformats were performed. One or more of the following dose reduction techniques were used: Automated exposure control, adjust ment of the mA and/or kV according to patient size, and/or iterative reconstruction. FINDINGS: No evidence of hydrocephalus, intracranial hemorrhage, or extra-axial fluid collection. Mild brain atrophy with mild periventricular and deep white matter chronic microvascular ischemic ch anges present. No evidence of midline shift or areas of brain edema. The calvarium is intact. The visualized paranasal sinuses and mastoid air cells are essentially clear . IMPRESSION: No evidence of acute intracranial abnormality.
--- NOTE | 2024-10-07 12:18 | RAD REPORT ---
EXAMINATION: ONE VIEW CHEST XR CLINICAL INDICATION: COUGH TECHNIQUE: Frontal chest projection is submitted. Examination is limited by patient positioning and t echnique. COMPARISON: 03/31/2023 FINDINGS: The lungs are diffusely emphysematous but grossly clear. The heart is normal in size. No displaced fr actures identified. Aortic atherosclerosis. IMPRESSION: COPD without an acute process suspected.
[2024-10-07 12:33] LABS: Absolute Eosinophils 0.2 K/uL (0-0.5); Absolute Monocytes 0.4 K/uL (0.1-1.3); Absolute Neutrophil 1.6 K/uL (1.8-8.0); Basophils % 0.8 % (0-1.3); Eosinophils % 5.9 % (0-4.4); Hematocrit 30.1 % (39.6-49.0); Hemoglobin 9.5 g/dL (13.6-17.9); Lymphocytes % 31.4 % (15.3-44.8); MCH 28.8 pg (27.0-35.0); MCHC 31.6 g/dL (32.0-36.0); MCV 91.1 fL (80-100); MPV 10.2 fL (7.6-11.3); Monocytes % 11.7 % (3.3-12.3); Neutrophils % 50.2 % (41.7-73.7); Platelets 273 thou/uL (152-406); Red Cell Distribution Width 14.8 % (12.1-15.2)
[2024-10-07 12:37] LABS: PT Prothrombin Time 14.2 SECONDS (9.4-12.5); Protime INR 1.28
[2024-10-07 12:55] LABS: AST/SGOT 25 U/L (15-37); Albumin 2.9 g/dL (3.4-5.0); Albumin/Globulin Ratio 0.7 (1.1-1.8); Alkaline Phosphatase 26 U/L (45-117); Anion Gap 12.6 mEq/L (5.0-15.0); BUN Blood Urea Nitrogen 30 mg/dL (7-18); Bicarbonate 26 mEq/L (21-32); Bilirubin Direct 0.2 mg/dL (0-0.2); Bilirubin Indirect, Calculated 0.4 mg/dL (0.2-0.8); Bilirubin Total 0.6 mg/dL (0.2-1.0); Globulin 4.4 g/dL (2.3-3.5); Glomerular Filtration Rate 54 ml/min (=/>90); Glucose Level 116 mg/dL (74-106); Lipase 15 U/L (13-75); Magnesium 1.9 mg/dL (1.6-2.4); NT PRO-BNP 1020 pg/mL (<450); Potassium 4.6 mEq/L (3.5-5.1); Protein, Total 7.3 g/dL (6.4-8.2); Sodium Level 133 mEq/L (136-145); Troponin High Sensitivity 14.2 pg/mL (<58.9)
[2024-10-07 12:56] LABS: ALT/SGPT < 14 U/L (16-61)
--- NOTE | 2024-10-07 13:56 | EDPHYS ---
Physician Documentation [facility] Name: Saul Boyd Age: 84 yrs Sex: Male : 1940 Arrival Date: 10/07/2024 Time: 11:08 Bed 17 Private MD: ED Physician Ken Francois HPI: 10/07 13:45 This 84 yrs old Black Male presents to ER via Wheelchair with complaints of Weakness, lashell Dizziness. 13:45 The patient presents to the emergency department with weakness of the entire body, lashell generalized weakness, that is moderate, difficult walking, the patient is generally weak. Onset: The symptoms/episode began/occurred 2 day(s) ago. Context: occurred at home. Associated signs and symptoms: Pertinent positives: dizziness, weakness. Severity of symptoms: At their worst the symptoms were moderate in the emergency department the symptoms are unchanged. Patient's baseline: Neuro: alert and fully oriented. Current symptoms: weakness. The patient has experienced similar episodes in the past, several times. Historical: - Allergies: 11:34 NKA; iw - PMHx: 11:34 Asthma; cancer of bone; COPD; Hypertension; iw - Immunization history:: Adult Immunizations not up to date. - Infectious Disease History:: Denies. - Social history:: Smoking status: Patient/guardian denies using tobacco, but has a distant history of tobacco abuse. ROS: 13:48 Constitutional: Negative for fever, chills, and weight loss, Eyes: Negative for injury, lashell pain, redness, and discharge, ENT: Negative for injury, pain, and discharge, Neck: Negative for injury, pain, and swelling, Cardiovascular: Negative for chest pain, palpitations, and edema, Respiratory: Negative for shortness of breath, cough, wheezing, and pleuritic chest pain, Back: Negative for injury and pain, : Negative for injury, bleeding, discharge, and swelling, MS/Extremity: Negative for injury and deformity, Skin: Negative for injury, rash, and discoloration, Neuro: Negative for headache, weakness, numbness, tingling, and seizure, Psych: Negative for depression, anxiety, suicide ideation, homicidal ideation, and hallucinations, Allergy/Immunology: Negative for hives, rash, and allergies, Endocrine: Negative for neck swelling, polydipsia, polyuria, polyphagia, and marked weight changes, Hematologic/Lymphatic: Negative for swollen nodes, abnormal bleeding, and unusual bruising, 13:48 Abdomen/GI: Positive for nausea, anorexia, Exam: 13:48 Constitutional: This is a well developed, well nourished patient who is awake, alert, lashell and in no acute distress. Head/Face: Normocephalic, atraumatic. Eyes: Pupils equal round and reactive to light, extra-ocular motions intact. Lids and lashes normal. Conjunctiva and sclera are non-icteric and not injected. Cornea within normal limits. Periorbital areas with no swelling, redness, or edema. ENT: Nares patent. No nasal discharge, no septal abnormalities noted. Tympanic membranes are normal and external auditory canals are clear. Oropharynx with no redness, swelling, or masses, exudates, or evidence of obstruction, uvula midline. Mucous membranes moist. Neck: Trachea midline, no thyromegaly or masses palpated, and no cervical lymphadenopathy. Supple, full range of motion without nuchal rigidity, or vertebral point tenderness. No Meningismus. Chest/axilla: Normal chest wall appearance and motion. Nontender with no deformity. No lesions are appreciated. Cardiovascular: Regular rate and rhythm with a normal S1 and S2. No gallops, murmurs, or rubs. Normal PMI, no JVD. No pulse deficits. Respiratory: Lungs have equal breath sounds bilaterally, clear to auscultation and percussion. No rales, rhonchi or wheezes noted. No increased work of breathing, no retractions or nasal flaring. Abdomen/GI: Soft, non-tender, with normal bowel sounds. No distension or tympany. No guarding or rebound. No evidence of tenderness throughout. Back: No spinal tenderness. No costovertebral tenderness. Full range of motion. Male : Normal genitalia with no discharge or lesions. Skin: Warm, dry with normal turgor. Normal color with no rashes, no lesions, and no evidence of cellulitis. MS/ Extremity: Pulses equal, no cyanosis. Neurovascular intact. Full, normal range of motion., bilateral aka Psych: Awake, alert, with orientation to person, place and time. Behavior, mood, and affect are within normal limits. 13:48 Neuro: Orientation: is normal, appropriate for stated age, no acute changes, Mentation: is normal, appropriate for stated age, no acute changes, Memory: is normal, appropriate for stated age, no acute changes, Cranial nerves: grossly normal, is grossly normal based on the patient's age, no acute changes, Cerebellar function: is grossly normal, is grossly normal based on the patient's age, no acute changes, Motor: is normal, is grossly normal based on the patient's age, moves all fours, strength is normal, Sensation: is normal, Gait: not tested. seizure activity, is not displayed by the patient, 13:56 ECG was reviewed by the Attending Physician. [facility] Vital Signs: 11:32 BP 126 / 68; Pulse 73; Resp 16; Pulse Ox 100% on R/A; Weight 38.56 kg; Height 5 ft. 5 iw in. ; Pain 0/10; 13:40 BP 132 / 62; Pulse 62; Pulse Ox 100% ; ap3 15:34 BP 157 / 60 Supine; Pulse 63; Resp 11; Pulse Ox 100% ; bp 15:35 BP 145 / 62 Standing; Pulse 67; bp 11:32 Body Mass Index 14.14 (38.56 kg, 165.1 cm) 11:32 Pain Scale: Adult NIH Stroke Scale Scores: 11:45 NIHSS Score: 0 bp MDM: 11:24 Medical Screening Exam initiated [facility] 13:50 Data reviewed: vital signs, nurses notes, lab test result(s), EKG, radiologic studies, lashell plain films. Consideration of Admission/Observation Patient was admitted/placed on observation. Escalation of care including admission/observation considered. I considered the following discharge prescriptions or medication management in the emergency department Medications were administered in the Emergency Department. See MAR. Independent interpretation of the following test(s) in the Emergency Department EKG: See my EKG interpretation above. Test considered but Not performed: CT: no ct abd/pelvis. Historians other than the Patient: Family Member: son and very well informed. Care significantly affected by the following chronic conditions: Hypertension, Chronic Obstructive Pulmonary Disease, Cancer. 14:57 Counseling: I had a detailed discussion with the patient and/or guardian regarding the [facility] historical points, exam findings, and any diagnostic results supporting the discharge/admit diagnosis, lab results, radiology results, the need for further work-up and treatment in the hospital, pt doesn't want to be admitted. ED course: pt refused to be admitted. 10/07 11:25 Order name: Basic Metabolic Panel; Complete Time: 12:58 [facility] 10/07 11:25 Order name: CBC with Diff; Complete Time: 12:58 [facility] 10/07 11:25 Order name: LFT's; Complete Time: 12:58 [facility] 10/07 11:25 Order name: Magnesium; Complete Time: 12:58 [facility] 10/07 11:25 Order name: NT PRO-BNP; Complete Time: 12:58 [facility] 10/07 11:25 Order name: PT-INR; Complete Time: 12:58 [facility] 10/07 11:25 Order name: Troponin HS; Complete Time: 12:58 [facility] 10/07 11:25 Order name: Urinalysis w/ reflexes; Complete Time: 14:56 [facility] 10/07 11:25 Order name: Lipase; Complete Time: 12:58 [facility] 10/07 12:58 Order name: Flu; Complete Time: 14:56 [facility] 10/07 12:58 Order name: SARS RAPID; Complete Time: 14:56 [facility] 10/07 11:25 Order name: XRAY Chest (1 view); Complete Time: 12:58 [facility] 10/07 11:25 Order name: CT Head Brain wo Cont; Complete Time: 12:58 [facility] 10/07 11:25 Order name: Cardiac monitoring; Complete Time: 11:38 [facility] 10/07 11:25 Order name: EKG - Nurse/Tech; Complete Time: 11:38 [facility] 10/07 11:25 Order name: IV Saline Lock; Complete Time: 12:22 [facility] 10/07 11:25 Order name: Labs collected and sent; Complete Time: 12:22 [facility] 10/07 11:25 Order name: O2 Per Protocol; Complete Time: 11:38 [facility] 10/07 11:25 Order name: O2 Sat Monitoring; Complete Time: 11:38 [facility] 10/07 13:48 Order name: Misc. Order: get ua; Complete Time: 14:31 [facility] 10/07 14:57 Order name: PO challenge; Complete Time: 15:36 [facility] 10/07 14:57 Order name: Orthostatics; Complete Time: 15:36 [facility] EC:56 Rate is 72 beats/min. Rhythm is regular. QRS [place] is Normal. SC interval is normal. QRS lashell interval is normal. QT interval is normal. No Q waves. T waves are Normal in leads V1, V2, V3, V4. No ST changes noted. Clinical impression: NSR w/ Non-specific ST/T Changes and No evidence of ischemia. Interpreted by me. Reviewed by me. Administered Medications: 12:00 Drug: NS 0.9% IV 500 ml IV at bolus once; to be given as a bolus over 30 minutes Route: bp IV; Rate: bolus; Site: right forearm; 13:57 Follow up: IV Status: Completed infusion bp Disposition Summary: 10/07/24 15:42 Discharge Ordered Notes: Location: Home(10/07/24 15:42) lashell Problem: new(10/07/24 15:42) lashell Symptoms: have improved(10/07/24 15:42) lashell Condition: Stable(10/07/24 15:42) lashell Diagnosis - Weakness(10/07/24 15:42) lashell - Dehydration(10/07/24 15:42) lashell - Anorexia lashell Followup: lashell - With: Private Physician - When: 2 - 3 days - Reason: Recheck today's complaints, Continuance of care, Re-evaluation by your physician Discharge Instructions: - Discharge Summary Sheet lashell - Dehydration, Elderly lashell - Dizziness lashell - Weakness lashell - Fatigue lashell - Weakness, [id number]-Swvr lashell - Dizziness, [id number] lashell - Rehydration, Elderly lashell Forms: - Medication Reconciliation Form lashell - Antibiotic Education lashell - Prescription Opioid Use lashell - Patient Portal Instructions lashell - Leadership Thank You Letter [facility] NIH Stroke Scale - NIH Stroke Score Date: 10/07/2024 Time: 11:45 Total Score = 0 10. Dysarthria (speech clarity - read or repeat words) - 0(Normal) 11. Extinction and Inattention (visual/tactile/auditory/spatial/personal) - 0(No abnormality) 1a. Level of Consciousness (LOC) - 0(Alert) 1b. Level of Consciousness (LOC) (Month \T\ Age) - 0(Both) 1c. LOC Commands (Open \T\ Closes Eyes/Family [employer] Consumer Sciences Professor) - 0(Both) 2. Best Gaze (Lateral Gaze Paresis) - 0(Normal) 3. Visual Field Loss - 0(No visual loss) 4. Facial Palsy - 0(Normal) 5a. Left Arm: Motor (10-second hold) - 0(No drift) 5b. Right Arm: Motor (10-second hold) - 0(No drift) 6a. Left Leg: Motor (5-second hold - always test supine) - 0(No drift) 6b. Right Leg: Motor (5-second hold - always test supine) - 0(No drift) 7. Limb Ataxia (finger/nose \T\ heel/[place] - test with eyes open) - 0(Absent) 8. Sensory Loss (pinprick arms/legs/face) - 0(Normal) 9. Best Language: Aphasia (description/naming/reading) - 0(No aphasia) Initials: bp Signatures: Dispatcher [employer] EDMS Ken Francois MD MD cha Williams, Irene, KATEY RN iw Cameron Hodges RN RN bp Corrections: (The following items were deleted from the chart) 11:26 11:26 BASIC METABOLIC PANEL+C.LAB.BRZ ordered. EDMS EDMS 11:26 11:26 CBC+H.LAB.BRZ ordered. EDMS EDMS 11:26 11:26 HEPATIC FUNCTION+C.LAB.BRZ ordered. EDVT EDMS 11:26 11:26 MAGNESIUM+C.LAB.BRZ ordered. EDMS EDMS 11:26 11:26 PROBNP+C.LAB.BRZ ordered. EDMS EDMS 11:26 11:26 PROTIME (+INR)+COAG.LAB.BRZ ordered. EDMS EDMS 11:26 11:26 Troponin High Sensitivity+C.LAB.BRZ ordered. EDMS EDMS 11:26 11:26 Urinalysis+U.LAB.BRZ ordered. EDMS EDMS 11:26 11:26 LIPASE+C.LAB.BRZ ordered. EDVT EDMS 11:26 11:26 Chest Single View+RAD.RAD.BRZ ordered. EDMS EDMS 11:26 11:26 Head Brain Wo Cont+CT.RAD.BRZ ordered. EDVT EDMS 15:41 13:55 Inpatient Admission lashell lashell 15:41 13:55 Demarcus Hauser lashell lashell 15:41 13:55 Telemetry/MedSurg (Inpatient) lashell lashell 15:41 13:55 Stable lashell lashell 15:41 13:55 new lashell lashell 15:41 13:55 have improved lashell lashell 15:41 13:55 Standard lashell lashell 15:41 13:55 lashell lashell 15:41 13:55 Dehydration lashell lashell 15:41 13:55 Weakness lashell lashell 15:41 13:55 Anemia, unspecified [facility]
--- NOTE | 2024-10-07 13:56 | ER ---
Nurse's Notes [facility] Name: Saul Boyd Age: 84 yrs Sex: Male : 1940 Arrival Date: 10/07/2024 Time: 11:08 Bed 17 Private MD: Diagnosis: Weakness;Dehydration;Anorexia Presentation: 10/07 11:32 Chief complaint: Patient's son or daughter states: pt has been feeling weak and dizzy iw for a while and it got worse over past few weeks , hx of prostate and bone cancer , he is not eating well and has a cough and dry heaving. Coronavirus screen: At this time, the client does not indicate any symptoms associated with coronavirus-19. Ebola Screen: No symptoms or risks identified at this time. Initial Sepsis Screen: Does the patient meet any 2 criteria? No. Patient's initial sepsis screen is negative. Does the patient have a suspected source of infection? No. Patient's initial sepsis screen is negative. Risk Assessment: Do you want to hurt yourself or someone else? Patient reports no desire to harm self or others. Onset of symptoms was August 2024. 11:32 Method Of Arrival: Wheelchair iw 11:32 Acuity: ODELL 3 iw 16:06 No acute neurological deficit is noted. Pre-hospital glucose is not applicable to this bp patient. Triage Assessment: 11:45 The onset of the patients symptoms was at an unknown time. General: Appears slender, bp Behavior is calm, cooperative, appropriate for age. Pain: Denies pain. EENT: No deficits noted. Neuro: Reports dizziness, weakness. Cardiovascular: No deficits noted. Respiratory: No deficits noted. GI: Reports anorexia. : No signs and/or symptoms were reported regarding the genitourinary system. Derm: No deficits noted. Musculoskeletal: No deficits noted. Historical: - Allergies: 11:34 NKA; iw - PMHx: 11:34 Asthma; cancer of bone; COPD; Hypertension; iw - Immunization history:: Adult Immunizations not up to date. - Infectious Disease History:: Denies. - Social history:: Smoking status: Patient/guardian denies using tobacco, but has a distant history of tobacco abuse. Screenin:45 [facility] ED Fall Risk Assessment (Adult) History of falling in the last 3 months, bp including since admission No falls in past 3 months (0 pts) Confusion or Disorientation No (0 pts) Intoxicated or Sedated No (0 pts) Impaired Gait No (0 pts) Mobility Assist Device Used No (0 pt) Altered Elimination No (0 pt) Score/Fall Risk Level 0 - 2 = Low Risk Oriented to surroundings. Abuse screen: Denies threats or abuse. Denies injuries from another. Nutritional screening: No deficits noted. Tuberculosis screening: No symptoms or risk factors identified. Assessment: 11:45 VAN Scoring: Arm Drift: Patients demonstrates NO arm weakness. Patient is VAN Negative. bp Kaylee Swallow Protocol Exclusion Criteria: Unable to remain alert for testing: No NPO for medical/surgical reason by provider order No Exclusion Criteria Result: Proceed Brief Cognitive Screen What is your name? Normal, Where are you right now? Normal, What year is it? Normal. Oral Mechanism Examination Facial Symmetry: Normal, Motion: Normal, Lip Closure: Normal, Oral Mechanism Result: Normal. 3 oz Water Swallow Challenge: Pt able to drink all water without stopping, coughing, choking or throat clearing: Yes Result: PASS Notified: Ken Francois MD. TNKase (Tenecteplase) Screening: Contraindications: Rapidly improving condition or minor deficit: Yes. General: Appears in no apparent distress. Behavior is calm, cooperative, appropriate for age. Pain: Denies pain. Neuro: Level of Consciousness is awake, alert, obeys commands, Oriented to Appropriate for age Moves all extremities. Full function. 13:30 Reassessment: No changes from previously documented assessment. Patient is alert, bp oriented x 3, equal unlabored respirations, skin warm/dry/pink. 15:30 Reassessment: PT DECLINING ADMIT. MD NOTIFIED. bp Vital Signs: 11:32 BP 126 / 68; Pulse 73; Resp 16; Pulse Ox 100% on R/A; Weight 38.56 kg; Height 5 ft. 5 iw in. ; Pain 0/10; 13:40 BP 132 / 62; Pulse 62; Pulse Ox 100% ; ap3 15:34 BP 157 / 60 Supine; Pulse 63; Resp 11; Pulse Ox 100% ; bp 15:35 BP 145 / 62 Standing; Pulse 67; bp 11:32 Body Mass Index 14.14 (38.56 kg, 165.1 cm) iw 11:32 Pain Scale: Adult iw NIH Stroke Scale Scores: 11:45 NIHSS Score: 0 bp ED Course: 11:10 Patient arrived in ED. ra3 11:24 Ken Francois MD is Attending Physician. lashell 11:34 Triage completed. iw 11:34 Arm band placed on. iw 11:35 Cameron Hodges, RN is Primary Nurse. bp 11:45 Patient has correct armband on for positive identification. bp 11:55 CT Head Brain wo Cont In Process Unspecified. EDMS 12:11 XRAY Chest (1 view) In Process Unspecified. EDMS 12:23 Initial lab(s) drawn, by me, sent to lab. Inserted saline lock: 22 gauge in right bp forearm, using aseptic technique. Blood collected. Flushed with 10 mL NS. 13:54 Demarcus Hauser MD is Hospitalizing Provider. lashell 16:07 No provider procedures requiring assistance completed. IV discontinued, intact, bp bleeding controlled, No redness/swelling at site. Pressure dressing applied. Administered Medications: 12:00 Drug: NS 0.9% IV 500 ml IV at bolus once; to be given as a bolus over 30 minutes Route: bp IV; Rate: bolus; Site: right forearm; 13:57 Follow up: IV Status: Completed infusion bp Outcome: 13:55 Decision to Hospitalize by Provider. lashell 15:42 Discharge ordered by . lashell 16:06 Discharged to home via wheelchair, with family, bp 16:06 Condition: stable 16:06 Discharge instructions given to patient, family, Instructed on discharge instructions, follow up and referral plans. Demonstrated understanding of instructions, follow-up care, 16:07 Patient left the ED. bp NIH Stroke Scale - NIH Stroke Score Date: 10/07/2024 Time: 11:45 Total Score = 0 10. Dysarthria (speech clarity - read or repeat words) - 0(Normal) 11. Extinction and Inattention (visual/tactile/auditory/spatial/personal) - 0(No abnormality) 1a. Level of Consciousness (LOC) - 0(Alert) 1b. Level of Consciousness (LOC) (Month \T\ Age) - 0(Both) 1c. LOC Commands (Open \T\ Closes Eyes/Outside Sales Professional) - 0(Both) 2. Best Gaze (Lateral Gaze Paresis) - 0(Normal) 3. Visual Field Loss - 0(No visual loss) 4. Facial Palsy - 0(Normal) 5a. Left Arm: Motor (10-second hold) - 0(No drift) 5b. Right Arm: Motor (10-second hold) - 0(No drift) 6a. Left Leg: Motor (5-second hold - always test supine) - 0(No drift) 6b. Right Leg: Motor (5-second hold - always test supine) - 0(No drift) 7. Limb Ataxia (finger/nose \T\ heel/[place] - test with eyes open) - 0(Absent) 8. Sensory Loss (pinprick arms/legs/face) - 0(Normal) 9. Best Language: Aphasia (description/naming/reading) - 0(No aphasia) Initials: bp Signatures: Dispatcher [employer] EDMS Ken Francois MD MD cha Williams, Irene, RN Cameron De Paz RN RN bp Prokisch, Amanda, RN RN ap3 Arlene Thapa ra3 Corrections: (The following items were deleted from the chart) 15:37 15:34 BP 157 / 60; Pulse 63bpm; Resp 11bpm; Pulse Ox 100%; bp bp
[2024-10-07 14:03] LABS: SARS-CoV-2 Antigen CONTROL BLUE LINE VIS/BG OK; SARS-CoV-2 Antigen Rapid Res Negative (Negative)
[2024-10-07 14:21] LABS: Sqamous Epithelial <5 /HPF (None Seen); Urine Bacteria None Seen /HPF (<20); Urine Culture Reflex Order NOT NEEDED; Urine Microscopic Reflex YN ORDER UMIC; Urine Mucus Slight /HPF (None Seen); Urine RBC <5 /HPF (None Seen); Urine WBC <5 /HPF (<5); Urine Yeast (Budding) Trace /HPF (None Seen)
[2024-10-07 14:24] LABS: Specific Gravity 1.016 (1.005-1.030); Urine Bilirubin NEGATIVE (Negative); Urine Clarity Clear (Clear); Urine Color Yellow (Yellow); Urine Glucose Negative (Negative)
[2024-10-07 14:25] LABS: Urine Blood Negative (Negative); Urine Ketones Negative (Negative); Urine Nitrite Negative (Negative); Urine Protein 1+ (Negative); Urine Urobilinogen Normal (Normal); Urine pH 5.5 (5.0-7.0)
[2024-10-07 16:12] VITALS: O2SAT 100
[2024-10-07 16:16] VITALS: BP 145/62
--- NOTE | 2024-10-08 11:09 | EKG ---
Test Date: 2024-10-07 Test Time: 11:35:40 Stencil Typist: TON MEASUREMENT RESULTS: Intervals: Rate: 72 [place]: 138 QRSD: 110 QT: 466 QTc: 510 [place]: P: 101 [place]: 138 QRS: 84 T: 110 INTERPRETIVE STATEMENTS: Sinus rhythm with occasional premature ventricular complexes Low voltage QRS T wave abnormality, consider anterior ischemia Prolonged QT Abnormal ECG Compared to ECG 03/31/2023 13:31:59 Ventricular premature complex(es) now present Low QRS voltage now present T-wave abnormality now present Possible ischemia now present Prolonged QT interval now present Sinus tachycardia no longer present Atrial premature complex(es) no longer present Right bundle-branch block no longer present Electronically Signed On 10-08-24 11:07:09 INTERNAL SALES ENGINEER by Barrett Amaya
== END 2024-10-07 16:07 | disposition home or self-care (01) ==
LOC: ER 11:08
DX: R53.1 Weakness (principal); E86.0 Dehydration; R63.0 Anorexia; R42 Dizziness and giddiness; C41.9 Malignant neoplasm of bone and articular cartilage, unspecified; Z11.52 Encounter for screening for COVID-19
CPT/HCPCS: 96361; 93005; 85025; 81001; 80048; 36415; 83735; 85610; 80076; 84484; 83690; 83880; 87804 ×2; 70450; 71045; 96360; 99285; 87811; J7040

== ENCOUNTER 2024-12-26 10:24 | Emergency (ER) | payer OTHER ==
[2024-12-26] MEDS ORDERED: ALBUTEROL 2.5 MG/3 ML NEB SOL ONE (10:45)
[2024-12-26] MEDS ORDERED: METHYLPREDNISOLONE 125 MG INJ ONE (10:45)
[2024-12-26] MEDS ORDERED: IPRATROPIUM BROM 0.5MG/2.5ML ONE (10:45)
[2024-12-26 11:24] LABS: Absolute Lymphocytes (CBC) 1.2 K/uL (0.7-4.9); Absolute Monocytes 0.6 K/uL (0.1-1.3); Absolute Neutrophil 4.1 K/uL (1.8-8.0); Basophils % 0.4 % (0-1.3); Eosinophils % 0.7 % (0-4.4); Hematocrit 30.6 % (39.6-49.0); Hemoglobin 10.2 g/dL (13.6-17.9); Lymphocytes % 19.8 % (15.3-44.8); MCH 31.1 pg (27.0-35.0); MCHC 33.3 g/dL (32.0-36.0); MCV 93.2 fL (80-100); MPV 8.5 fL (7.6-11.3); Monocytes % 10.3 % (3.3-12.3); Neutrophils % 68.8 % (41.7-73.7); Platelets 312 thou/uL (152-406); RBC Red Blood Cell Count 3.29 M/uL (4.33-5.43); Red Cell Distribution Width 13.4 % (12.1-15.2)
[2024-12-26 11:42] LABS: AST/SGOT 11 U/L (15-37); Albumin 2.7 g/dL (3.4-5.0); Albumin/Globulin Ratio 0.6 (1.1-1.8); Alkaline Phosphatase 15 U/L (45-117); Anion Gap 10.8 mEq/L (5.0-15.0); BUN Blood Urea Nitrogen 33 mg/dL (7-18); Bicarbonate 26 mEq/L (21-32); Bilirubin Total 0.2 mg/dL (0.2-1.0); Globulin 4.2 g/dL (2.3-3.5); Glomerular Filtration Rate 47 ml/min (=/>90); Glucose Level 94 mg/dL (74-106); NT PRO-BNP 920 pg/mL (<450); Potassium 4.8 mEq/L (3.5-5.1); Protein, Total 6.9 g/dL (6.4-8.2); Sodium Level 142 mEq/L (136-145)
[2024-12-26 11:49] LABS: ALT/SGPT < 14 U/L (16-61); Bilirubin Direct < 0.2 mg/dL (0-0.2)
[2024-12-26 12:06] LABS: Arterial Blood Carboxyhemoglob 1.3 % (0-1.5); Blood Gas Oxyhemoglobin 92.2 % (94-97); Blood O2 Saturation 94.2 % (92-98.5)
[2024-12-26 12:07] LABS: Blood Gas THB 12.9 g/dl (12-18)
--- NOTE | 2024-12-26 12:24 | RAD REPORT ---
EXAMINATION: ONE VIEW CHEST XR CLINICAL INDICATION: DYSPNEA TECHNIQUE: Frontal chest projection is submitted. Examination is limited by patient positioning and t echnique. COMPARISON: 10/07/2024 FINDINGS: There is significant left hemithorax opacification likely combination of pleural fluid and lung infil trate/consolidation. The right lung is grossly clear. Cardiac size not well assessed but there does appear to be some mass effect on the cardiomediastinal structures to the right. Aortic atherosclerosi s. Considered CT chest follow-up assessment.
--- NOTE | 2024-12-26 13:48 | ER ---
Nurse's Notes [facility] Name: Saul Boyd Age: 84 yrs Sex: Male : 1940 Arrival Date: 12/26/2024 Time: 10:24 Bed 17 Private MD: Diagnosis: Complex, loculated pleural effusion Presentation: 12/26 10:29 Chief complaint: Patient states: SOB, seen by Dr Vizcarra this morning and told to come to ED because Spo2 was low, hx of COPD. Coronavirus screen: Vaccine status: Patient reports being unvaccinated. Ebola Screen: No symptoms or risks identified at this time. Initial Sepsis Screen: Does the patient meet any 2 criteria? No. Patient's initial sepsis screen is negative. Does the patient have a suspected source of infection? No. Patient's initial sepsis screen is negative. Risk Assessment: Do you want to hurt yourself or someone else? Patient reports no desire to harm self or others. Onset of symptoms was December 26, 2024. 10:29 Method Of Arrival: Wheelchair 10:29 Acuity: ODELL 2 ph Historical: - Allergies: 10:33 NKA; ph - PMHx: 10:33 Asthma; cancer of bone; COPD; Hypertension; ph - Immunization history:: Adult Immunizations unknown. - Infectious Disease History:: Denies. - Social history:: Smoking status: Patient denies any tobacco usage or history of. - Family history:: not pertinent. Screenin:18 [facility] ED Fall Risk Assessment (Adult) History of falling in the last 3 months, kc6 including since admission No falls in past 3 months (0 pts) Confusion or Disorientation No (0 pts) Intoxicated or Sedated No (0 pts) Impaired Gait No (0 pts) Mobility Assist Device Used Yes (1 pt) Altered Elimination No (0 pt) Score/Fall Risk Level 0 - 2 = Low Risk Oriented to surroundings, Maintained a safe environment, Educated pt \T\ family on fall prevention, incl call for assistance when getting out of bed. Abuse screen: Denies threats or abuse. Denies injuries from another. Nutritional screening: No deficits noted. Tuberculosis screening: No symptoms or risk factors identified. Assessment: 11:19 General: Appears in no apparent distress. comfortable, slender, well groomed, Behavior kc6 is calm, cooperative, appropriate for age. Pain: Denies pain. Neuro: Level of Consciousness is awake, alert, obeys commands, Oriented to person, place, time, situation, Appropriate for age. Cardiovascular: Denies chest pain, Capillary refill < 3 seconds. Respiratory: Reports shortness of breath on exertion Airway is patent Trachea midline Respiratory effort is even, unlabored, Respiratory pattern is regular, symmetrical. GI: No signs and/or symptoms were reported involving the gastrointestinal system. : No signs and/or symptoms were reported regarding the genitourinary system. EENT: No signs and/or symptoms were reported regarding the EENT system. Derm: No signs and/or symptoms reported regarding the dermatologic system. Skin is intact, is fragile, is thin, with poor turgor Skin is pink, warm \T\ dry. Musculoskeletal: No signs and/or symptoms reported regarding the musculoskeletal system. Circulation, motion, and sensation intact. Range of motion: intact in all extremities. 12:11 Reassessment: Patient appears in no apparent distress at this time. No changes from kc6 previously documented assessment. Patient and/or family updated on plan of care and expected duration. Pain level reassessed. 13:25 Reassessment: Patient appears in no apparent distress at this time. No changes from kc6 previously documented assessment. Patient and/or family updated on plan of care and expected duration. Pain level reassessed. 14:58 Reassessment: Patient appears in no apparent distress at this time. No changes from kc6 previously documented assessment. Patient and/or family updated on plan of care and expected duration. Pain level reassessed. 15:58 Reassessment: Patient appears in no apparent distress at this time. No changes from kc6 previously documented assessment. Patient and/or family updated on plan of care and expected duration. Pain level reassessed. 16:58 Reassessment: Patient appears in no apparent distress at this time. No changes from kc6 previously documented assessment. Patient and/or family updated on plan of care and expected duration. Pain level reassessed. 17:49 Reassessment: attempted to call report to [facility] three times, no answer at this kc6 timme. 18:49 Reassessment: Patient appears in no apparent distress at this time. No changes from kc6 previously documented assessment. Patient and/or family updated on plan of care and expected duration. Pain level reassessed. 19:05 General: Appears in no apparent distress. comfortable, Behavior is calm, cooperative. ay Pain: Denies pain. Neuro: Level of Consciousness is awake, alert, obeys commands, Oriented to person, place, time, situation, Speech is normal. Cardiovascular: Denies chest pain, nausea, vomiting, Capillary refill < 3 seconds. Respiratory: Airway Respiratory effort is even, unlabored, Respiratory pattern is regular, symmetrical, Denies shortness of breath. GI: No signs and/or symptoms were reported involving the gastrointestinal system. : No signs and/or symptoms were reported regarding the genitourinary system. EENT: No signs and/or symptoms were reported regarding the EENT system. 20:46 Reassessment: Picked up by [facility] for transfer to [facility]. Pt ay stable, no any distress noted. Vital Signs: 10:29 BP 148 / 77; Pulse 61; Resp 18; Temp 97.8; Pulse Ox 80% on R/A; Weight 43.09 kg; ph 11:19 BP 157 / 72; Pulse 79; Resp 14 S; Pulse Ox 97% on R/A; kc6 12:11 BP 153 / 81; Pulse 77; Resp 17 S; Pulse Ox 100% on R/A; kc6 13:25 BP 154 / 82; Pulse 86; Resp 20 S; Pulse Ox 96% on R/A; kc6 14:58 BP 155 / 77; Pulse 92; Resp 19; Pulse Ox 95% on R/A; kc6 16:11 BP 166 / 88; Pulse 91; Resp 18 S; Pulse Ox 99% on R/A; kc6 17:23 BP 146 / 79; Pulse 92; Resp 18 S; Pulse Ox 100% on R/A; kc6 19:23 BP 146 / 84; Pulse 96; Resp 19; Pulse Ox 100% on R/A; ay ED Course: 10:27 Patient arrived in ED. ph 10:28 Richard Holguin MD is Attending Physician. rt 10:33 Triage completed. ph 10:34 Arm band placed on Patient placed in an exam room, on a stretcher, on oxygen. ph 10:43 Alexia Villareal, KATEY is Primary Nurse. kc6 11:18 Patient has correct armband on for positive identification. Bed in low position. Call kc6 light in reach. Side rails up X2. Adult w/ patient. dumpman on. Pulse ox on. NIBP on. Door closed. Noise minimized. Lights dimmed. Warm blanket given. Pillow given. Verbal reassurance given. 11:18 Initial lab(s) drawn, by me, sent to lab. Inserted saline lock: 22 gauge in right kc6 forearm, using aseptic technique. Blood collected. Flushed with 10 mL NS. Patient maintains SpO2 saturation greater than 95% on room air. 12:08 XRAY Chest (1 view) In Process Unspecified. EDMS 14:03 initiated transfer to [facility]. bd 14:54 pt denied at [facility] due to all edmundo with thoracic being at capacity. bd 16:11 Head of bed elevated. Turned to back. Diet: Patient given snack. Patient given water. kc6 Tolerated well. 18:06 No provider procedures requiring assistance completed. Patient transferred, IV remains ll1 in place. 19:00 Report given to KATEY Young. kc6 Administered Medications: 10:59 Drug: Albuterol Inhalation 2.5 mg Inhalation once Route: Inhalation; kc6 12:11 Follow up: Response: No adverse reaction kc6 10:59 Drug: Ipratropium Inhalation Aerosol 0.5 mg Inhalation once Route: Inhalation; kc6 12:11 Follow up: Response: No adverse reaction kc6 11:18 Drug: MethylPrednisoLONE IVP 125 mg IVP once Route: IVP; Site: right forearm; kc6 12:11 Follow up: Response: No adverse reaction [facility] Medication: 18:07 VIS not applicable for this client. ll1 Outcome: 13:48 ER care complete, transfer ordered by . rt 18:05 Transferred by ground EMS to [facility], Transfer form completed. ll1 Note: Report called to Tanya. Ari RN 18:05 Condition: stable 18:05 Instructed on the need for transfer, 20:53 Patient left the ED. ay Signatures: Dispatcher [employer] EDMS Christy Borden Patricia, RN RN ph Lewis, Lynsay, RN RN ll1 Alexia Villareal RN RN kc6 Richard Holguin MD MD rt Hannah Cartwright RN RN ay
--- NOTE | 2024-12-26 13:48 | EDPHYS ---
Physician Documentation [facility] Name: Saul Boyd Age: 84 yrs Sex: Male : 1940 Arrival Date: 12/26/2024 Time: 10:24 Bed 17 Private MD: ED Physician Richard Holguin HPI: 12/26 10:42 This 84 yrs old Black Male presents to ER via Wheelchair with complaints of Low O2. rt 10:42 Patient presents to the ED from Dr. Newberry's office for dyspnea, hypoxia to 79% on rt room air, he has no baseline oxygen requirement does report a history of COPD. States that he has dyspnea with exertion, cough. Denies other acute complaints at this time, symptoms are moderate in severity, no other aggravating or alleviating factors.. Historical: - Allergies: 10:33 NKA; ph - PMHx: 10:33 Asthma; cancer of bone; COPD; Hypertension; ph - Immunization history:: Adult Immunizations unknown. - Infectious Disease History:: Denies. - Social history:: Smoking status: Patient denies any tobacco usage or history of. - Family history:: not pertinent. ROS: 10:42 Constitutional: Negative for fever, chills, and weight loss, Cardiovascular: Negative rt for chest pain, palpitations, and edema, Abdomen/GI: Negative for abdominal pain, nausea, vomiting, diarrhea, and constipation, Skin: Negative for injury, rash, and discoloration, Neuro: Negative for headache, weakness, numbness, tingling, and seizure, 10:42 Respiratory: Positive for cough, shortness of breath, Exam: 10:42 Constitutional: This is a well developed, well nourished patient who is awake, alert, rt and in no acute distress. Head/Face: Normocephalic, atraumatic. Chest/axilla: Normal chest wall appearance and motion. Nontender with no deformity. No lesions are appreciated. Cardiovascular: Regular rate and rhythm with a normal S1 and S2. No gallops, murmurs, or rubs. Normal PMI, no JVD. No pulse deficits. Abdomen/GI: Soft, non-tender, with normal bowel sounds. No distension or tympany. No guarding or rebound. No evidence of tenderness throughout. Skin: Warm, dry with normal turgor. Normal color with no rashes, no lesions, and no evidence of cellulitis. MS/ Extremity: Pulses equal, no cyanosis. Neurovascular intact. Full, normal range of motion. Neuro: Awake and alert, GCS 15, oriented to person, place, time, and situation. Cranial nerves II-XII grossly intact. Motor strength 5/5 in all extremities. Sensory grossly intact. Cerebellar exam normal. Normal gait. 10:42 Respiratory: Coarse breath sounds diffusely, mild wheezing, no respiratory distress, 11:15 ECG was reviewed by the Attending Physician. rt Vital Signs: 10:29 BP 148 / 77; Pulse 61; Resp 18; Temp 97.8; Pulse Ox 80% on R/A; Weight 43.09 kg; ph 11:19 BP 157 / 72; Pulse 79; Resp 14 S; Pulse Ox 97% on R/A; kc6 12:11 BP 153 / 81; Pulse 77; Resp 17 S; Pulse Ox 100% on R/A; kc6 13:25 BP 154 / 82; Pulse 86; Resp 20 S; Pulse Ox 96% on R/A; kc6 14:58 BP 155 / 77; Pulse 92; Resp 19; Pulse Ox 95% on R/A; kc6 16:11 BP 166 / 88; Pulse 91; Resp 18 S; Pulse Ox 99% on R/A; kc6 17:23 BP 146 / 79; Pulse 92; Resp 18 S; Pulse Ox 100% on R/A; kc6 19:23 BP 146 / 84; Pulse 96; Resp 19; Pulse Ox 100% on R/A; ay MDM: 10:35 Medical Screening Exam initiated rt 17:49 Differential Diagnosis Hypoxia, pleural effusion, pneumonia. Data reviewed: vital rt signs, nurses notes, lab test result(s), EKG, radiologic studies. Management of patient was discussed with the following: [employer] Agent: Discussed with Dr. Newberry, recommends transfer due to complex pleural effusion. Independent interpretation of the following test(s) in the Emergency Department X-Ray: My interpretation is Pleural effusion seen on my interpretation of x-ray images. Test considered but Not performed: CT: CT scan performed recently, do not believe that repeat CT scan is indicated at this time.. Care significantly affected by the following chronic conditions: Prostate cancer. Counseling: I had a detailed discussion with the patient and/or guardian regarding the historical points, exam findings, and any diagnostic results supporting the discharge/admit diagnosis, lab results, radiology results, the need to transfer to another facility. Response to treatment: There is no appreciated change of the patient's symptoms at this time. 12/26 10:41 Order name: Basic Metabolic Panel; Complete Time: 12:14 rt 12/26 10:41 Order name: CBC with Diff; Complete Time: 12:14 rt 12/26 10:41 Order name: LFT's; Complete Time: 12:14 rt 12/26 10:41 Order name: NT PRO-BNP; Complete Time: 12:14 rt 12/26 10:41 Order name: Troponin HS; Complete Time: 12:14 rt 12/26 10:42 Order name: ABG; Complete Time: 12:14 rt 12/26 10:41 Order name: XRAY Chest (1 view); Complete Time: 12:25 rt 12/26 10:41 Order name: Cardiac monitoring; Complete Time: 11:00 rt 12/26 10:41 Order name: EKG - Nurse/Tech; Complete Time: 11:00 rt 12/26 10:41 Order name: IV Saline Lock; Complete Time: 11:18 rt 12/26 10:41 Order name: Labs collected and sent; Complete Time: 11:18 rt 12/26 10:41 Order name: O2 Per Protocol; Complete Time: 10:43 rt 12/26 10:41 Order name: O2 Sat Monitoring; Complete Time: 10:43 rt EC:15 Rate is 81 beats/min. Rhythm is regular, Normal Sinus Rhythm with No ectopy. QRS [place] rt is Normal. IN interval is normal. QRS interval is normal. QT interval is normal. No Q waves. T waves are Normal. No ST changes noted. Interpreted by me. Administered Medications: 10:59 Drug: Albuterol Inhalation 2.5 mg Inhalation once Route: Inhalation; kc6 12:11 Follow up: Response: No adverse reaction kc6 10:59 Drug: Ipratropium Inhalation Aerosol 0.5 mg Inhalation once Route: Inhalation; kc6 12:11 Follow up: Response: No adverse reaction kc6 11:18 Drug: MethylPrednisoLONE IVP 125 mg IVP once Route: IVP; Site: right forearm; kc6 12:11 Follow up: Response: No adverse reaction kc6 Disposition Summary: 12/26/24 13:48 Transfer Ordered Notes: Reason: Higher level of care rt Condition: Stable rt Problem: new rt Symptoms: are unchanged rt Transfer Location: [facility](12/26/24 16:28) rt Accepting Physician: (12/26/24 20:53) ay Diagnosis - Complex, loculated pleural effusion rt Forms: - Medication Reconciliation Form rt - SBAR form rt Signatures: Dispatcher [employer] EDMS Yee Randolph RN RN ph Alexia Villareal RN RN kc6 Richard Holguin MD MD rt Hannah Cartwright RN RN ay Corrections: (The following items were deleted from the chart) 10:42 10:41 BASIC METABOLIC PANEL+C.LAB.BRZ ordered. EDMS EDMS 10:42 10:41 CBC+H.LAB.BRZ ordered. EDMS EDMS 10:42 10:41 HEPATIC FUNCTION+C.LAB.BRZ ordered. EDMS EDMS 10:42 10:42 PROBNP+C.LAB.BRZ ordered. EDMS EDMS 10:42 10:42 Troponin High Sensitivity+C.LAB.BRZ ordered. EDMS EDMS 10:42 10:42 Chest Single View+RAD.RAD.BRZ ordered. EDMS EDMS 16:28 13:48 rt rt 16:28 13:48 [facility] rt rt 20:53 16:28 rt ay
[2024-12-26 21:30] VITALS: TEMP 97.8
[2024-12-26 21:37] VITALS: O2SAT 100
[2024-12-26 21:38] VITALS: BP 146/84
--- NOTE | 2024-12-28 14:47 | EKG ---
Test Date: 2024-12-26 Test Time: 10:54:40 Documentation Analyst: MIKE MEASUREMENT RESULTS: Intervals: Rate: 81 NV: 108 QRSD: 84 QT: 382 QTc: 443 [place]: P: NV: 108 QRS: 60 T: 38 INTERPRETIVE STATEMENTS: Sinus rhythm with short NV Otherwise normal ECG Compared to ECG 10/07/2024 11:35:40 Short NV interval now present Ventricular premature complex(es) no longer present T-wave abnormality no longer present Possible ischemia no longer present Prolonged QT interval no longer present Electronically Signed On 12-28-24 14:42:38 CDT by Barrett Amaya
== END 2024-12-26 20:53 | disposition short-term general hospital (02) ==
LOC: ER 10:24
DX: J90 Pleural effusion, not elsewhere classified (principal); J44.9 Chronic obstructive pulmonary disease, unspecified; I10 Essential (primary) hypertension; Z85.830 Personal history of malignant neoplasm of bone
CPT/HCPCS: 85025; 80048; 36415; 80076; 84484; 83880; 71045; 82805; 36600; J7613; J7644; J2919; 93005; 96374; 99285